=== PATIENT | male | born 1990 | race Two or more races ===

== ENCOUNTER 2025-09-10 17:42 | Emergency (ER) | payer OTHER ==
[~2025-09-10] VITALS: Ht 170.2 cm; Wt 70.4 kg
[2025-09-10 19:28] VITALS: TEMP 98.6
[2025-09-10] MEDS: KETOROLAC TROMETHAMINE 30 MG/ML VIAL IM ONE (22:37)
[2025-09-11 00:44] VITALS: BP 119/84; PULSE 70; RESP 18; O2SAT 98
== END 2025-09-11 00:57 ==
LOC: EMS 17:42
DX: S02.642A Fracture of ramus of left mandible, initial encounter for closed fracture (principal); Y08.89XA Assault by other specified means, initial encounter; Y93.89 Activity, other specified; Y92.89 Other specified places as the place of occurrence of the external cause; Y99.8 Other external cause status
CPT/HCPCS: 99285; 70486; 96372; J1885